=== PATIENT | male | born 1955 ===

== ENCOUNTER 2024-05-20 16:00 | Outpatient (CLI) | payer MEDICARE | END 2024-05-20 16:01 | disposition home or self-care (01) | LOC: SLEEPLAB 16:00 | DX: G47.33 Obstructive sleep apnea (adult) (pediatric) (principal); I25.10 Atherosclerotic heart disease of native coronary artery without angina pectoris; E11.9 Type 2 diabetes mellitus without complications; E66.9 Obesity, unspecified; I10 Essential (primary) hypertension; Z68.38 Body mass index [BMI] 38.0-38.9, adult | CPT/HCPCS: 95800 ==